=== PATIENT | male | born 1960 | race Caucasian/White ===

== ENCOUNTER 2021-05-03 07:00 | Outpatient (CLI) | payer OTHER | END 2021-05-03 23:59 | disposition home or self-care (01) | LOC: COV 07:00 | PROVIDERS: ATTEND Family Medicine | DX: R43.8 Other disturbances of smell and taste (principal); Z20.822 Contact with and (suspected) exposure to COVID-19 ==

== ENCOUNTER 2022-07-28 14:53 | Emergency (ER) | payer OTHER ==
[2022-07-28 15:21] LABS: BASOPHILS # (AUTO) 0.1 10^3/uL (0.0-0.1); BASOPHILS % (AUTO) 0.6 %; EOSINOPHILS # (AUTO) 0.3 10^3/uL (0.0-0.7); EOSINOPHILS % (AUTO) 2.8 %; HCT - HEMATOCRIT 48.8 % (42.0-52.0); LYMPHOCYTES % (AUTO) 21.2 %; MEAN CORPUSCULAR HEMOGLOBIN 31.3 pg (27.0-31.0); MEAN CORPUSCULAR HGB CONC 34.8 g/dL (32.0-36.0); MEAN CORPUSCULAR VOLUME 89.9 fL (80.0-94.0); MEAN PLATELET VOLUME 8.4 fL (7.4-11.4); MONOCYTES # (AUTO) 0.6 10^3/uL (0.0-1.0); MONOCYTES % (AUTO) 6.3 %; NEUTROPHILS # (AUTO) 6.4 10^3/uL (1.5-6.6); NEUTROPHILS % (AUTO) 68.8 %; PLT - PLATELET COUNT 234 10^3/uL (130-450); RED BLOOD COUNT 5.43 10^6/uL (4.70-6.10); RED CELL DISTRIBUTION WIDTH 13.2 % (12.0-15.0); WHITE BLOOD COUNT 9.3 x10^3/uL (4.8-10.8)
[2022-07-28 15:39] LABS: ALBUMIN 4.5 g/dL (3.2-5.5); ALBUMIN/GLOBULIN RATIO 1.5 (1.0-2.2); BILIRUBIN,TOTAL 1.4 mg/dL (0.2-1.0); CALCIUM 9.3 mg/dL (8.5-10.3); CREATININE 0.8 mg/dL (0.6-1.2); TOTAL PROTEIN 7.5 g/dL (6.7-8.2)
--- NOTE | 2022-07-28 15:40 | ED Physician Documentation ---
PD HPI CHEST PAIN - Stated complaint Stated Complaint: CHEST PX, SOA - Chief complaint Chief Complaint: Cardiac - History obtained from History obtained from: Patient - Additional information Additional information: The patient comes to the emergency department chief complaint of central chest tightness radiating to his back, that started while he was walking his dog this morning. Patient states that he normally walks his dog for about 30 minutes 3 times a day and that he often gets chest tightness. He states that this seemed worse than usual and it felt a lot like anxiety attacks has had before. He states that he felt a sudden tightening in his chest, along with some nausea, and it made him buckle to the ground. The patient states that it remained at its worst for about 20 minutes and then subsided. He has had a vague sense of tightness in his chest throughout the day, but no worsening again. The patient states that he was told he had an enlarged heart and was started on nitroglyce rin some years ago for this but states that he does not take it anymore. He denies hypertension or diabetes. He denies alcohol use. He states his discomfort is very mild now. No other exacerbating or remitting factors. No other complaints at this time. Review of Systems Ten Systems: 10 systems reviewed and negative Constitutional: reports: Reviewed and negative Eyes: reports: Reviewed and negative Ears: reports: Reviewed and negative Nose: reports: Reviewed and negative Throat: reports: Reviewed and negative Cardiac: reports: Chest pain / pressure Respiratory: reports: Reviewed and negative GI: reports: Reviewed and negative : reports: Reviewed and negative Skin: reports: Reviewed and negative Musculoskeletal: reports: Reviewed and negative Neurologic: reports: Reviewed and negative Psychiatric: reports: Reviewed and negative Endocrine: reports: Reviewed and negative Immunocompromised: reports: Reviewed and negative PD PAST MEDICAL HISTORY - Past Medical History Cardiovascular: Hypertension GI: Other - Past Surgical History Past Surgical History: Yes - Present Medications Home Medications: Ambulatory Orders Medication Instructions Recorded Confirmed Aspirin [Aspir-Low] 81 mg ORAL DAILY 06/05/16 06/05/16 Hydrocodone/Acetaminophen [[place] 1 each PO Q6H PRN #20 tablet 06/05/16 5-325 Tablet] Losartan [Cozaar] 25 mg ORAL DAILY 06/05/16 06/05/16 Metoprolol Tartrate 50 mg ORAL BID 06/05/16 06/05/16 Sertraline [Zoloft] 25 mg ORAL DAILY 06/05/16 06/05/16 cephALEXin [Keflex] 500 mg PO TID #21 capsule 06/05/16 metroNIDAZOLE [Flagyl] 500 mg PO BID #14 tablet 06/05/16 ondansetron HCL [Zofran] 4 mg PO Q6H PRN #20 tablet 06/05/16 - Allergies Allergies/Adverse Reactions: Allergies Allergy/AdvReac Type Severity Reaction Status Date / Time codeine Allergy Itching Verified 07/28/22 15:02 hydroxyzine HCl * Allergy Respiratory Verified 07/28/22 15:02 [From Vistaril] hydroxyzine pamoate * Allergy Respiratory Verified 07/28/22 15:02 [From Vistaril] - Social History Does the pt smoke?: No Smoking Status: Never smoker Does the pt drink ETOH?: Yes Does the pt have substance abuse?: No - Immunizations Immunizations are current?: Yes PD ED PE NORMAL - Vitals Vital signs reviewed: Yes - General General: Alert and oriented X 3, No acute distress, Well developed/nourished - HEENT HEENT: Atraumatic, PERRL, EOMI, Moist mucous membranes - Neck Neck: Supple, no meningeal sign - Cardiac Cardiac: RRR, No murmur, Strong equal pulses - Respiratory Respiratory: No respiratory distress, Clear bilaterally - Abdomen Abdomen: Soft, Non tender, Non distended - Derm Derm: Normal color, Warm and dry, No rash - Extremities Extremities: No deformity, No edema, No calf tenderness / cord - Neuro Neuro: Alert and oriented X 3, 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, No motor deficit, No sensory deficit, Normal speech - Psych Psych: Normal mood, Normal affect Results - Vitals Vitals: Vital Signs - 24 hr 07/28/22 07/28/22 07/28/22 14:59 15:29 15:32 Temperature 36.0 C L Heart Rate 115 H 102 H 96 Respiratory 20 17 12 Rate Blood Pressure 147/91 H 156/86 H 177/102 H O2 Saturation 97 99 98 07/28/22 07/28/22 07/28/22 16:05 17:00 17:30 Temperature Heart Rate 92 83 82 Respiratory 14 10 L 18 Rate Blood Pressure 116/89 H 147/88 H 161/85 H O2 Saturation 99 99 99 07/28/22 18:10 Temperature Heart Rate 79 Respiratory 16 Rate Blood Pressure 154/81 H O2 Saturation 100 Oxygen O2 Source Room air - Labs Labs: Laboratory Tests 07/28/22 07/28/22 07/28/22 15:15 15:15 15:15 WBC 9.3 RBC 5.43 Hgb 17.0 Hct 48.8 MCV 89.9 MCH 31.3 H MCHC 34.8 RDW 13.2 Plt Count 234 MPV 8.4 Neut # (Auto) 6.4 Lymph # (Auto) 2.0 [place] # (Auto) 0.6 Eos # (Auto) 0.3 Baso # (Auto) 0.1 Absolute Nucleated RBC 0.00 Nucleated RBC % 0.0 Sodium 139 Potassium 4.0 Chloride 101 Carbon Dioxide 25 Anion Gap 13.0 BUN 15 Creatinine 0.8 Estimated GFR (MDRD) 98 Glucose 122 H Calcium 9.3 Total Bilirubin 1.4 H AST 32 ALT 24 Alkaline Phosphatase 57 Troponin I High Sens 6.3 Total Protein 7.5 Albumin 4.5 Globulin 3.0 Albumin/Globulin Ratio 1.5 Lipase 48 Nasal Adenovirus (PCR) Nasal B. parapertussis DNA (PCR) Nasal Coronavir 229E PCR Nasal Coronavir HKU1 PCR Nasal Coronavir NL63 PCR Nasal Coronavir OC43 PCR Nasal Enterovir/Rhinovir PCR Nasal Influenza B PCR Nasal Influenza A PCR Nasal Parainfluen 1 PCR Nasal Parainfluen 2 PCR Nasal Parainfluen 3 PCR Nasal Parainfluen 4 PCR Nasal RSV (PCR) Nasal B.pertussis DNA PCR Nasal C.pneumoniae (PCR) Tariq Human Metapneumo PCR Nasal M.pneumoniae (PCR) Nasal SARS-CoV-2 (PCR) 07/28/22 15:28 WBC RBC Hgb Hct MCV MCH MCHC RDW Plt Count MPV Neut # (Auto) Lymph # (Auto) [place] # (Auto) Eos # (Auto) Baso # (Auto) Absolute Nucleated RBC Nucleated RBC % Sodium Potassium Chloride Carbon Dioxide Anion Gap BUN Creatinine Estimated GFR (MDRD) Glucose Calcium Total Bilirubin AST ALT Alkaline Phosphatase Troponin I High Sens Total Protein Albumin Globulin Albumin/Globulin Ratio Lipase Nasal Adenovirus (PCR) NOT DETECTED Nasal B. parapertussis DNA (PCR) NOT DETECTED Nasal Coronavir 229E PCR NOT DETECTED Nasal Coronavir HKU1 PCR NOT DETECTED Nasal Coronavir NL63 PCR NOT DETECTED Nasal Coronavir OC43 PCR NOT DETECTED Nasal Enterovir/Rhinovir PCR NOT DETECTED Nasal Influenza B PCR NOT DETECTED Nasal Influenza A PCR NOT DETECTED Nasal Parainfluen 1 PCR NOT DETECTED Nasal Parainfluen 2 PCR NOT DETECTED Nasal Parainfluen 3 PCR NOT DETECTED Nasal Parainfluen 4 PCR NOT DETECTED Nasal RSV (PCR) NOT DETECTED Nasal B.pertussis DNA PCR NOT DETECTED Nasal C.pneumoniae (PCR) NOT DETECTED Tariq Human Metapneumo PCR NOT DETECTED Nasal M.pneumoniae (PCR) NOT DETECTED Nasal SARS-CoV-2 (PCR) NOT DETECTED PD MEDICAL DECISION MAKING - ED course Complexity details: reviewed results, re-evaluated patient, considered differential, d/w patient ED course: The patient was evaluated with labs and EKG, Which were unremarkable. Patient had a negative troponin a number of hours after onset of the discomfort, and I felt that by now, deep troponin should have been positive if it was a cardiac source. The patient seemed to have more musculoskeletal pain, given the worsening with deep breaths and with movement. I discussed with the patient that it is important that he follows up with his primary doctor to close the loop on the possibility of cardiac issues. However, at this point in time I feel he is stable for discharge home. We have discussed the usual indications for return. Departure - Departure Disposition: 01 Home, Self Care Clinical Impression: Chest pain Qualifiers: Chest pain type: unspecified Qualified Code(s): R07.9 - Chest pain, unspecified Condition: Stable Instructions: ED Chest Pain Atypical Unkn Cause Comments: Your labs and EKG look good. There is no evidence of a serious condition causing your symptoms. Your cardiac enzymes look good. It is important that you follow-up with your doctor to discuss whether a stress test would be good to further evaluate your heart. It is possible that you also may have some degree of anxiety and should talk to your doctor about treatment for this, as well. Please return if your symptoms worsen. Discharge Date/Time: 07/28/22 18:15
--- NOTE | 2022-07-28 15:55 | XRAY Report ---
PROCEDURE: Chest 1 View X-Ray INDICATIONS: Chest Pain TECHNIQUE: One view of the chest was acquired. COMPARISON: None FINDINGS: Surgical changes and devices: None. Lungs and pleura: No pleural effusions or pneumothorax. Lungs are clear. Mediastinum: Mediastinal contours appear normal. Heart size is normal. Bones and chest wall: No suspicious bony lesions. Overlying soft tissues appear unremarkable. IMPRESSION: No acute cardiopulmonary findings Reviewed by: Refugio Rey MD on 07/28/2022 2:53 PM AKDT Approved by: Refugio Rey MD on 07/28/2022 2:53 PM AKDT Station ID: [id number]
[2022-07-28 16:27] LABS: CORONAVIRUS 229E-RESP PCR NOT DETECTED; CORONAVIRUS HKU1-RESP PCR NOT DETECTED; CORONAVIRUS NL63-RESP PCR NOT DETECTED; CORONAVIRUS OC43-RESP PCR NOT DETECTED; HUMAN METAPNEUMOVIRUS NOT DETECTED; INFLUENZA A- RESP PCR PANEL NOT DETECTED; RHINOVIRUS/ENTEROVIRUS NOT DETECTED; SARS-CoV-2 -RESP PCR PANEL NOT DETECTED
[2022-07-28 16:28] LABS: B. PARAPERTUSSIS- RESP PCR PAN NOT DETECTED; B. PERTUSSIS- RESP PCR PANEL NOT DETECTED; C. PNEUMONIAE- RESP PCR PANEL NOT DETECTED; INFLUENZA B - RESP PCR PANEL NOT DETECTED; M. PNEUMONIAE- RESP PCR PANEL NOT DETECTED; PARAINFLUENZA VIRUS 1 NOT DETECTED; PARAINFLUENZA VIRUS 2 NOT DETECTED; PARAINFLUENZA VIRUS 3 NOT DETECTED; PARAINFLUENZA VIRUS 4 NOT DETECTED; RSV- RESP PCR PANEL NOT DETECTED
[2022-07-28 18:11] VITALS: BP 154/81
== END 2022-07-28 18:15 | disposition home or self-care (01) ==
LOC: ED 14:53
DX: R07.9 Chest pain, unspecified (principal); Z20.822 Contact with and (suspected) exposure to COVID-19
CPT/HCPCS: 36415; 80053; 83690; 84484; 85025; 87633; 93005; 99282; 99284

== ENCOUNTER 2024-07-05 13:56 | Emergency (ER) | payer OTHER ==
[2024-07-05 16:40] LABS: BASOPHILS # (AUTO) 0.1 10^3/uL (0.0-0.1); BASOPHILS % (AUTO) 0.5 %; EOSINOPHILS # (AUTO) 0.1 10^3/uL (0.0-0.7); EOSINOPHILS % (AUTO) 0.8 %; HCT - HEMATOCRIT 53.5 % (42.0-52.0); HGB - HEMOGLOBIN 18.4 g/dL (14.0-18.0); LYMPHOCYTES # (AUTO) 2.2 10^3/uL (1.5-3.5); LYMPHOCYTES % (AUTO) 16.2 %; MEAN CORPUSCULAR HEMOGLOBIN 31.8 pg (27.0-31.0); MEAN CORPUSCULAR HGB CONC 34.4 g/dL (32.0-36.0); MEAN CORPUSCULAR VOLUME 92.6 fL (80.0-94.0); MEAN PLATELET VOLUME 8.9 fL (7.4-11.4); MONOCYTES # (AUTO) 1.3 10^3/uL (0.0-1.0); MONOCYTES % (AUTO) 9.7 %; NEUTROPHILS # (AUTO) 9.6 10^3/uL (1.5-6.6); NEUTROPHILS % (AUTO) 72.3 %; PLT - PLATELET COUNT 237 10^3/uL (130-450); RED BLOOD COUNT 5.78 10^6/uL (4.70-6.10); RED CELL DISTRIBUTION WIDTH 12.1 % (12.0-15.0); WHITE BLOOD COUNT 13.2 x10^3/uL (4.8-10.8)
[2024-07-05] MEDS: ONDANSETRON 4 MG/2 ML VIAL IVP STA (16:46)
--- NOTE | 2024-07-05 16:49 | CT Report ---
PROCEDURE: Head WO INDICATIONS: SYNCOPE TECHNIQUE: Noncontrast 4.5 mm thick angled axial sections acquired from the foramen magnum to the vertex. For r adiation dose reduction, the following was used: automated exposure control, adjustment of mA and/or kV according to patient size. COMPARISON: None. FINDINGS: Image quality: Excellent. CSF spaces: Basal cisterns are patent. No extra-axial fluid collections. Ventricles are normal in size and shape. Brain: No midline shift. No intracranial masses or hemorrhage. Antony-white matter interface is norm al. Skull and face: Calvarium and visualized facial bones are intact, without suspicious lesions. Sinuses: Visualized sinuses and mastoids are clear. IMPRESSION: No acute intracranial pathology. Reviewed by: Phil Blue MD on 07/05/2024 4:48 PM PDT Approved by: Phil Blue MD on 07/05/2024 4:48 PM PDT Station ID: [id number]
--- NOTE | 2024-07-05 16:52 | CT Report ---
PROCEDURE: Chest WO INDICATIONS: RT RIB PAIN TECHNIQUE: A CT scan of the chest was performed. Intravenous contrast media was not administered. Images were re corded and evaluated at appropriate window settings. Reformats: axial MIP of the chest, coronal and s agittal. For radiation dose reduction, the following was used: automated exposure control, adjustment of mA and/or kV according to patient size. COMPARISON: None. FINDINGS: Image quality: Diagnostic. Chest wall and lower neck: No thyroid nodule which requires sonographic follow up. No axillary or sup raclavicular adenopathy by size. Lungs and pleura: No consolidation. No pleural effusions. No pneumothorax. Scattered pulmonary micro nodules, including the 2 mm nodule in the right lower lobe (series 4, image 81). Mediastinum: Heart size is normal. No pericardial effusion. No large vessel abnormality. No mediastin al adenopathy by size criteria. 2 vessel coronary artery calcifications, moderate to severe for age. Bones: No aggressive osseous abnormality. Upper Abdomen: Unremarkable. IMPRESSION: No displaced fracture or pneumothorax. Scattered solid pulmonary nodules. Consider 12 month follow-up if this patient is at high risk for de veloping lung cancer, per Fleischner Society guidelines. Moderate to severe coronary artery calcifications for age. 1.8 cm left adrenal nodule. Recommend outpatient CT or MRI for complete characterization (adrenal mas s protocol). Reviewed by: Phil Blue MD on 07/05/2024 4:50 PM PDT Approved by: Phil Blue MD on 07/05/2024 4:50 PM PDT Station ID: [id number]
--- NOTE | 2024-07-05 16:53 | CT Report ---
PROCEDURE: Cervical Spine WO INDICATIONS: GLF TECHNIQUE: Noncontrast 3 mm thick sections acquired from the skull base to the T4 level. Sagittal and coronal r eformats were then constructed. For radiation dose reduction, the following was used: automated exp osure control, adjustment of mA and/or kV according to patient size. COMPARISON: None. FINDINGS: Image quality: Suboptimal due to motion artifact. Bones: No fractures or dislocations. Visualized superior ribs are intact. Moderate disc height los s at C5-6, C4-5, C6-7. Mild disc height loss at remaining levels. Diffuse facet arthrosis. Soft tissues: Prevertebral soft tissues are normal in thickness. No paravertebral hematomas. No ap ical pneumothoraces. IMPRESSION: No acute, displaced fracture or traumatic subluxation. Mild to moderate, multilevel degenerative disc disease and diffuse facet arthrosis. Reviewed by: Phil Blue MD on 07/05/2024 4:52 PM PDT Approved by: Phil Blue MD on 07/05/2024 4:52 PM PDT Station ID: [id number]
[2024-07-05 17:16] LABS: ALBUMIN 5.1 g/dL (3.2-5.5); ALBUMIN/GLOBULIN RATIO 1.6 (1.0-2.2); ALKALINE PHOSPHATASE 54 IU/L (42-121); ALT ALANINE AMINOTRANSFERASE 55 IU/L (10-60); AST ASPARTATE AMINOTRANSFERASE 44 IU/L (10-42); BILIRUBIN,TOTAL 2.5 mg/dL (0.2-1.0); BUN - BLOOD UREA NITROGEN 32 mg/dL (6-20); CARBON DIOXIDE - CO2 29 mmol/L (21-32); CHLORIDE 93 mmol/L (101-111); CK- CREATINE KINASE 95 IU/L (30-223); CREATININE 1.3 mg/dL (0.6-1.3); ETOH - ETHANOL < 10.0 mg/dL; GFR - MDRD 56 (>89); GLUCOSE 110 mg/dL (74-104); LIPASE 39 U/L (11-82); MAGNESIUM 2.2 mg/dL (1.7-2.3); POTASSIUM 3.8 mmol/L (3.5-4.5); SODIUM 135 mmol/L (135-145); TOTAL PROTEIN 8.2 g/dL (6.4-8.9)
[2024-07-05] MEDS: SODIUM CHLORIDE 0.9% 1,000 ML IV STA (17:57)
[2024-07-05 19:12] VITALS: O2SAT 98
[2024-07-05 19:50] VITALS: BP 145/67
== END 2024-07-05 19:45 | disposition home or self-care (01) ==
LOC: ED 13:56
DX: E86.0 Dehydration (principal); R42 Dizziness and giddiness; R55 Syncope and collapse; F10.20 Alcohol dependence, uncomplicated; Y90.0 Blood alcohol level of less than 20 mg/100 ml
CPT/HCPCS: 36415; 80053; 82077; 82550; 83690; 83735; 84484; 85025; 93005; 99283; 99284